=== PATIENT | female | born 1970 | race Caucasian/White ===

== ENCOUNTER → 2017-10-02 07:33 | Outpatient (CLI) | payer BC, SELFPAY ==
--- NOTE | 2017-10-02 07:35 | HPBI_ITS ---
MAMMOGRAPHY - BILATERAL SCREENING REASON FOR EXAM: Female, 47 years old. Routine annual screening examination. PERTINENT HISTORY: Non-contributory. TECHNIQUE: Digital bilateral breast christie (3D mammographic acquisition) in the CC and MLO projections. 2-D mediolateral oblique (MLO) and craniocaudad (CC) views of both breasts were obtained. CAD: Full Field Digital Mammography with Computer Added Detection was performed. COMPARISON: Comparison is made with prior study dated August 27, 2011. FINDINGS: Breast Composition: There are scattered areas of fibroglandular density. There now is evidence of a 1.7 cm area of spiculation in the deep slightly lateral aspect of the left breast. I suspect this to be in the superior segment on the MLO view. Correlation with ultrasound is recommended for further evaluation. No other significant abnormalities are identified. HPBI/SCREENING MAMM (CAD), BILAT IMPRESSION: New spiculated density seen in the upper lateral portion of the left breast as described. Correlation with ultrasound is recommended for further evaluation. ASSESSMENT CATEGORY: BIRADS Category 0: Incomplete. Need additional imaging evaluation. A letter regarding these results will be sent to the patient by the facility within 30 days. Approximately 10% of breast cancers are not detected by mammography. A normal mammogram should not delay biopsy of a clinically suspicious abnormality. [id number] Electronically Signed: Jj Ferrari MD at 10:56 EST Tel [phone], Service support ,
== END ==
PROVIDERS: Family Provider Family Medicine; PCP Family Medicine; Visit Provider Family Medicine
DX: Z12.31 Encounter for screening mammogram for malignant neoplasm of breast (principal)
CPT/HCPCS: 77063; 77067

== ENCOUNTER → 2017-10-06 13:47 | Outpatient (CLI) | payer BC, SELFPAY ==
--- NOTE | 2017-10-06 13:48 | US_ITS ---
STUDY: ULTRASOUND BREAST - LEFT REASON FOR EXAM: Female, 47 years old. Abnormal screening mammogram. TECHNIQUE: Axial and longitudinal images of the LEFT breast were performed with a high resolution ultrasound transducer. COMPARISON: Comparison is made with prior mammogram dated September 2017. FINDINGS: LEFT Breast: At the 4:00 position of the breast, there is a mild degree of dilatation of the ducts. Additional mammographic images will be obtained. US/Breast Limited Unilateral IMPRESSION: Focally dilated ducts. Additional mammographic views will be obtained. ASSESSMENT CATEGORY: BIRADS Category 0: Incomplete. Need additional imaging evaluation. A letter regarding these results will be sent to the patient by the facility within 30 days. Electronically Signed: Jj Ferrari MD at 15:27 EST Tel [phone], Service support ,
--- NOTE | 2017-10-06 14:13 | HPBI_ITS ---
MAMMOGRAPHY - UNILATERAL DIAGNOSTIC: LEFT BREAST REASON FOR EXAM: Female, 47 years old. The patient was recalled for additional views of the left breast. PERTINENT HISTORY: TECHNIQUE: A 90 degree lateral and compression spot views of the left breast were obtained. CAD: Full Field Digital Mammography with Computer Added Detection was performed. COMPARISON: Comparison is made with prior study dated September 2017. FINDINGS: Breast Composition: There are scattered areas of fibroglandular density. There are no dominant masses or suspicious calcifications. There is no evidence of architectural distortion on the repeat examination. No other significant abnormalities are identified. HPBI/DIAG MAMM W/CAD, UNILAT IMPRESSION: Stable unilateral diagnostic mammogram. One year follow-up mammogram recommended. (A) ASSESSMENT CATEGORY: BIRADS Category 2: Benign. A letter regarding these results will be sent to the patient by the facility within 30 days. Approximately 10% of breast cancers are not detected by mammography. A normal mammogram should not delay biopsy of a clinically suspicious abnormality. Electronically Signed: Jj Ferrari MD at 8:11 EST Tel [phone], Service support ,
== END ==
PROVIDERS: Family Provider Family Medicine; PCP Family Medicine; Visit Provider Family Medicine
DX: R92.8 Other abnormal and inconclusive findings on diagnostic imaging of breast (principal)
CPT/HCPCS: 76642; 77065

== ENCOUNTER → 2018-10-08 08:17 | Outpatient (CLI) | payer OTHER, SELFPAY ==
[2018-10-08 12:23] LABS: Hematocrit 44.5 % (37-47); Hemoglobin 14.2 g/dl (12.0-15.0); Mean Corp Hgb Conc 31.9 g/gl (32-36); Mean Corpuscular Hgb 30.9 pg (27.0-32.0); Mean Corpuscular Volume 96.9 fL (81-99); Mean Platelet Vol. 11.3 fl (6.2-12.0); Platelet Count 256 K/mm3 (150-450); RBC Distribution Width CV 12.5 % (11.6-14.6); RBC Distribution Width SD 44.2 fl (35.1-43.9); Red Blood Count 4.59 M/mm3 (4.2-5.4); White Blood Count 4.6 K/mm3 (4.4-11.0)
[2018-10-08 12:24] LABS: Absolute Lymphocyte Count 1.83 X10^3/ul (0.83-4.51); Basophil# 0.08 X10^3/uL; Basophil% 1.7 % (0-1); Eosinophil# 0.08 X10^3/uL; Eosinophils% 1.7 % (0-5); Lymphocyte # 1.83 X10^3/ul (4.0); Lymphocyte % 39.4 % (19-41); Monocyte# 0.65 X10^3/uL; POSITIVE COUNT NO; POSITIVE DIFFERENTIAL NO; POSITIVE MORPHOLOGY NO
[2018-10-08 12:54] LABS: ALB/GLOB Ratio 1.1 RATIO (0.9-2.4); AST(SGOT) 27 U/L (15-37); Alanine Aminotransfer ALT/SGPT 31 U/L (13-56); Alkaline Phosphatase 138 U/L (45-117); Anion Gap 10 (5-15); BUN 14 mg/dL (7-18); BUN/Creat Ratio 18.7 RATIO (10-20); Calcium,Total 9.2 mg/dL (8.5-10.1); Chloride 107 mmol/L (98-107); Cholesterol 194 mg/dL (200); Creatinine, Serum 0.75 mg/dL (0.55-1.02); EST Glomerular Filtration Rate 87 mL/min (>60); Est Glom Filt Rate - Afr Amer 105 mL/min (>60); Globulin 3.8 g/dL (2.2-4.2); Glucose 70 mg/dL (74-106); High Density Lipoprotein 72 mg/dL; Potassium 4.4 mmol/L (3.5-5.1); Protein, Total 7.8 g/dL (6.4-8.2); Sodium Level 140 mmol/L (136-145); Triglycerides 68 mg/dL; Very Low Density Lipoprotein 14 mg/dL (5-40)
== END ==
PROVIDERS: Family Provider Family Medicine; PCP Family Medicine; Visit Provider Family Medicine
DX: Z00.01 Encounter for general adult medical examination with abnormal findings (principal)
CPT/HCPCS: 36415; 80053; 80061; 85025

== ENCOUNTER → 2019-09-23 08:55 | Outpatient (CLI) | payer OTHER, SELFPAY ==
[2019-09-23 12:23] LABS: Absolute Lymphocyte Count 1.87 X10^3/uL (0.83-4.51); Absolute Neutrophil Count 1.7 X10^3/uL (2.0-7.7); Basophil# 0.05 X10^3/uL; Basophil% 1.2 % (0-1); Eosinophil# 0.06 X10^3/uL; Eosinophils% 1.4 % (0-5); Hematocrit 41.5 % (37-47); Hemoglobin 13.4 g/dL (12.0-15.0); Lymphocyte # 1.87 X10^3/ul (4.0); Lymphocyte % 43.5 % (19-41); Mean Corp Hgb Conc 32.3 g/dL (32-36); Mean Corpuscular Hgb 31.2 pg (27.0-32.0); Mean Corpuscular Volume 96.5 fL (81-99); Mean Platelet Vol. 11.1 fl (6.2-12.0); Monocyte# 0.62 X10^3/uL; Monocyte% 14.4 % (0-10); NRBC Flagged by Analyzer 0 % (0-5); Neutrophil # 1.69 X10^3/uL (2.7-7.7); Neutrophil % 39.3 % (47-70); Platelet Count 272 K/mm3 (150-450); RBC Distribution Width CV 12.1 % (11.6-14.6); RBC Distribution Width SD 42.8 fl (35.1-43.9); White Blood Count 4.3 K/mm3 (4.4-11.0)
[2019-09-23 12:43] LABS: ALB/GLOB Ratio 1.1 RATIO (0.9-2.4); AST(SGOT) 21 U/L (15-37); Alanine Aminotransfer ALT/SGPT 33 U/L (13-56); Albumin, Serum 3.8 g/dL (3.2-5.0); Alkaline Phosphatase 137 U/L (45-117); Anion Gap 4 (5-15); BUN 12 mg/dL (7-18); BUN/Creat Ratio 16.4 RATIO (10-20); Calcium,Total 9.6 mg/dL (8.5-10.1); Chloride 107 mmol/L (98-107); Cholesterol 201 mg/dL (200); Creatinine, Serum 0.73 mg/dL (0.55-1.02); EST Glomerular Filtration Rate 89 mL/min (>60); Est Glom Filt Rate - Afr Amer 107 mL/min (>60); Globulin 3.6 g/dL (2.2-4.2); Glucose 86 mg/dL (74-106); High Density Lipoprotein 76 mg/dL; Protein, Total 7.4 g/dL (6.4-8.2); Sodium Level 139 mmol/L (136-145); Triglycerides 69 mg/dL
[2019-09-23 12:44] LABS: Very Low Density Lipoprotein 14 mg/dL (5-40)
[2019-09-24 19:25] LABS: Lipoprotein A 404.7 nmol/L (<75.0)
== END ==
LOC: BFHLAB 08:56
PROVIDERS: PCP Family Medicine; Visit Provider Family Medicine
DX: Z00.00 Encounter for general adult medical examination without abnormal findings (principal); Z82.49 Family history of ischemic heart disease and other diseases of the circulatory system
CPT/HCPCS: 36415; 80053; 80061; 83695; 85025

== ENCOUNTER → 2019-09-29 07:00 | Outpatient (CLI) | payer OTHER, SELFPAY ==
--- NOTE | 2019-09-29 06:53 | BI_ITS ---
MAMMOGRAPHY - BILATERAL SCREENING REASON FOR EXAM: Female, 49 years old. Routine annual screening examination. PERTINENT HISTORY: Non-contributory. TECHNIQUE: Digital bilateral breast lola (3D mammographic acquisition) in the CC and MLO projections. 2-D mediolateral oblique (MLO) and craniocaudad (CC) views of both breasts were obtained. CAD: Full Field Digital Mammography with Computer Added Detection was performed. COMPARISON: Comparison is made with prior examination dated October 02, 2017 and August 27, 2011. FINDINGS: Breast Composition: There are scattered areas of fibroglandular density. There are no dominant masses or suspicious calcifications. Metastases again, there is a focal area of the architectural distortion in the deep slightly lateral aspect of the left breast as seen on the craniocaudad view. This was worked up on prior examination. Repeat additional views including 90 degree lateral view of the left breast as well as rolled views and possible compression views of the left breast as well. No other significant abnormalities are identified. BI/SCREEN MAMM (CAD) W/LOLA BILAT IMPRESSION: Focal area of architectural distortion in the left breast as described. The patient will be recalled for additional views including compression spot views in the craniocaudad projection as well as rolled views and 90 degree lateral view. Recall Side: Left Breast ASSESSMENT CATEGORY: BIRADS Category 0: Incomplete. Need additional imaging evaluation. A letter regarding these results will be sent to the patient by the facility within 30 days. Approximately 10% of breast cancers are not detected by mammography. A normal mammogram should not delay biopsy of a clinically suspicious abnormality. [id number] Electronically Signed: Jj Ferrari, at 12:59 EST , Service support ,
--- NOTE | 2019-09-29 16:10 | RAD_ITS ---
STUDY: X-RAY CHEST REASON FOR EXAM: Female, 49 years old. left sided chest wall pain TECHNIQUE: PA and lateral COMPARISON: None. FINDINGS: The lungs are clear and expanded. There is no demonstrated pleural abnormality. Normal size heart. Normal mediastinum and mrailyn. Normal visualized pulmonary arteries. Normal visualized aortic arch and descending thoracic aorta. Thoracic spine demonstrates needle scoliosis and degenerative change. Normal visualized ribs, clavicles, and shoulders. There is no demonstrated abnormality of the visualized soft tissue structures of the upper abdomen. RAD/Chest PA and Lateral IMPRESSION: No acute cardiopulmonary pathology. Electronically Signed: Keegan Brice MD at 23:00 EST , Service support ,
== END ==
PROVIDERS: PCP Family Medicine; Referring Provider Family Medicine; Visit Provider Family Medicine
DX: Z12.31 Encounter for screening mammogram for malignant neoplasm of breast (principal); R07.9 Chest pain, unspecified
CPT/HCPCS: 71046; 77063; 77067

== ENCOUNTER → 2019-09-30 08:47 | Outpatient (CLI) | payer OTHER, SELFPAY ==
--- NOTE | 2019-09-30 08:50 | US_ITS ---
STUDY: ULTRASOUND BREAST - LEFT REASON FOR EXAM: Female, 49 years old. Abnormal screening mammogram. TECHNIQUE: Axial and longitudinal images of the LEFT breast were performed with a high resolution ultrasound transducer. # OF IMAGES: 1 COMPARISON: Comparison is made with prior examination dated September 30, 2019 and September 29, 2019. Comparison is also made with the prior sonogram of the left breast dated October 06, 2017. FINDINGS: LEFT Breast: The lateral half of the left breast was examined by ultrasound. Mildly dilated ducts at the 3 to 4:00 position of the breast. US/Breast Limited Unilateral IMPRESSION: Dilated ducts at the 3 to 4:00 position of the breast. This is unchanged. ASSESSMENT CATEGORY: BIRADS Category 2: Benign. A letter regarding these results will be sent to the patient by the facility within 30 days. Electronically Signed: Jj Ferrari, at 12:55 EST , Service support ,
--- NOTE | 2019-09-30 08:50 | BI_ITS ---
MAMMOGRAPHY - UNILATERAL DIAGNOSTIC: LEFT BREAST REASON FOR EXAM: Female, 49 years old. Abnormal screening mammogram. PERTINENT HISTORY: Non-contributory. TECHNIQUE: Compression spot views of the left breast in the mediolateral oblique and craniocaudad views were obtained. CAD: Full Field Digital Mammography with Computer Added Detection was performed. COMPARISON: Comparison is made with prior mammogram dated September 29, 2019. FINDINGS: Breast Composition: There are scattered areas of fibroglandular density. Persistent focal area of architectural distortion is seen on the craniocaudad view. Correlation with ultrasound is recommended. No other significant abnormalities are identified. BI/DIAG MAMM W/CAD, UNILAT IMPRESSION: Stable unilateral diagnostic mammogram. Correlation with ultrasound of the left breast is recommended. ASSESSMENT CATEGORY: BIRADS Category 0: Incomplete. Need additional imaging evaluation. A letter regarding these results will be sent to the patient by the facility within 30 days. Approximately 10% of breast cancers are not detected by mammography. A normal mammogram should not delay biopsy of a clinically suspicious abnormality. Electronically Signed: Jj Ferrari, at 10:18 EST , Service support ,
== END ==
PROVIDERS: PCP Family Medicine; Referring Provider Family Medicine; Visit Provider Family Medicine
DX: R92.8 Other abnormal and inconclusive findings on diagnostic imaging of breast (principal)
CPT/HCPCS: 76642; 77065

== ENCOUNTER → 2019-10-21 06:55 | Outpatient (CLI) | payer OTHER, SELFPAY ==
[2019-10-06 10:14] VITALS: BMI 27.9
--- NOTE | 2019-10-21 06:55 | ECHOD_ITS ---
Reason For Study: CHEST PAIN Procedure This was a 2D Doppler, Color Flow transthoracic echocardiogram. Exam performed in department. Left Ventricle Normal LV size. The estimated ejection fraction is 55 %. No evidence for diastolic dysfunction. No regional wall motion abnormalities noted. Right Ventricle Normal RV size. Normal systolic function. Atria Normal left atrium. Normal right atrium. No doppler evidence for ASD. Mitral Valve There is no mitral valve stenosis. No mitral valve insufficiency. Tricuspid Valve There is no tricuspid stenosis. Trivial tricuspid valve insufficiency. Pulmonary artery systolic pressure is 30 mmHg. Aortic Valve Trisinus/trileaflet aortic valve. There is no aortic stenosis. No aortic valve insufficiency. Pulmonic Valve There is no pulmonic valvular stenosis. Trivial pulmonic valve insufficiency identified. Great Vessels Normal aortic root. Pericardium/Pleural No pericardial effusion. MMode/2D Measurements & Calculations LVIDd: 4.4 cm IVSd: 0.64 cm Ao root diam: 3.1 cm LVIDs: 3.1 cm LVPWd: 0.80 cm RVDd: 3.5 cm FS: 29.8 % LAV(MOD-bp): 37.7 ml LVAd ap4: 28.2 cm2 SV(MOD-sp4): 51.5 ml LAV(MOD-bp) Indexed: 19.1 ml/m2 EDV(MOD-sp4): 82.5 ml LAV(MOD-sp2): 40.1 ml EDV(sp4-el): 85.9 ml LAV(MOD-sp4): 32.1 ml LVAs ap4: 15.2 cm2 ESV(MOD-sp4): 31.0 ml ESV(sp4-el): 31.2 ml EF(MOD-sp4): 62.5 % EF(sp4-el): 63.7 % SV(sp4-el): 54.7 ml LA A4 area: 13.8 cm2 LA dimension(2D): 3.1 cm RA A4 area: 14.2 cm2 Time Measurements MV dec time: 0.19 sec Doppler Measurements & Calculations MV E max devon: 91.8 cm/sec Lat Peak E' Devon: 11.6 cm/sec Med Peak E' Devon: 9.2 cm/sec MV A max devon: 74.0 cm/sec E/E' lat: 7.9 E/E' med: 10.0 MV E/A: 1.2 Ao V2 max: 139.8 cm/sec LV V1 max: 102.6 cm/sec PA V2 max: 102.8 cm/sec Ao max P.8 mmHg LV V1 max P.2 mmHg TR max devon: 246.3 cm/sec TR max P.3 mmHg Interpretation Summary The estimated ejection fraction is 55 %. No evidence for diastolic dysfunction. Trivial tricuspid valve insufficiency. Pulmonary artery systolic pressure is 30 mmHg. Ordering Physician: Tracie Calderon Referring Physician: MAURICE SANTOS Performed By: Zara Moffett RDCS
--- NOTE | 2019-10-22 16:11 | STRESSREP_ITS ---
Stress Test Report Date: 10/21/2019 Procedure: Exercise tolerance test/imaging study Indications: Chest pain Consent: Per the patient Procedure: The patient exercised on a Da protocol for 9 minutes achieving a peak heart rate of 171 bpm (101 % predicted maximal heart rate) with a peak blood pressure 140/76 mmHg and a peak MET capacity of 10.1 METs. The baseline ECG demonstrated normal sinus rhythm. The peak exercise ECG demonstrated sinus tachycardia with no significant ischemic changes. EKG during recovery revealed no significant ischemic changes [There were no cardiac dysrhythmias pretest, during exercise, or recovery]. The functional capacity was considered normal for age. There was [no complaint of chest discomfort during exercise or recovery]. The examination was discontinued secondary to achieving target heart rate. Impression: 1. Technically adequate (percent predicted maximal heart rate greater than 85%) exercise tolerance test 2. Stress test is negative for exercise-induced EKG changes of ischemia 3. The test test is negative for exercise-induced chest pain 4. Functional capacity is normal for age 5. Nuclear images pending Myocardial perfusion imaging study: Technique: The patient was injected with 14.1 mCi of technetium 99m Cardiolite and subsequently rest SPECT Cardiolite nuclear imaging was obtained in the horizontal long, vertical long, and short axis views. The patient exercised on a Da protocol. Please see above for details. The patient was injected with 44.3 mCi of technetium 99m Cardiolite and subsequently stress SPECT Cardiolite nuclear imaging was obtained in the horizontal long, vertical long, and short axis views. A gated Cardiolite study at peak stress was obtained. Interpretation: Rest and stress SPECT Cardiolite nuclear imaging status post realignment, normalization, and attenuation correction, demonstrates normal myocardial radioisotope uptake after attenuation correction. The gated Cardiolite study demonstrates no significant regional wall motion abnormalities. The reported LVEF is 68 %. Impression: 1. There is no evidence of significant ischemia or infarction. 2. The gated Cardiolite study reports an LVEF of 68 %. This note was generated with [employer] software. It may contain incorrect words, spelling, and punctuation that were not noted in checking the note before signing.
== END ==
PROVIDERS: PCP Family Medicine; Referring Provider Specialist; Visit Provider Specialist
DX: R07.9 Chest pain, unspecified (principal); E78.5 Hyperlipidemia, unspecified
CPT/HCPCS: 78452; 93017; 93306; A9500; A4216

== ENCOUNTER 2020-11-07 17:37 | Outpatient (RCR) | payer OTHER, SELFPAY ==
[2019-11-09 14:57] VITALS: BMI 27.9
[2020-11-07] MEDS: COVID-19 VACC, MRNA(PFIZER)/PF 30 MCG/0.3 ML SYRINGE IM (15:20)
[2020-11-28] MEDS: COVID-19 VACC, MRNA(PFIZER)/PF 30 MCG/0.3 ML SYRINGE IM (15:05)
== END 2021-01-30 23:59 ==
LOC: IMMUN 17:37
PROVIDERS: PCP Family Medicine; Referring Provider Family Medicine; Visit Provider Family Medicine
DX: Z23 Encounter for immunization (principal)
CPT/HCPCS: 0001A; 0002A; 91300

== ENCOUNTER → 2021-06-21 16:35 | Outpatient (CLI) | payer OTHER, SELFPAY ==
--- NOTE | 2021-06-21 16:37 | RAD_ITS ---
STUDY: X-RAY - LEFT ELBOW REASON FOR EXAM: Female, 51 years old. Elbow pain. TECHNIQUE: 3 view(s) of the elbow. COMPARISON: None. FINDINGS: Normal visualized humerus, radius and ulna. Normal radiocapitellar and ulnotrochlear articulations. The soft tissue structures are unremarkable. RAD/Elbow min 3 Views IMPRESSION: Normal x-ray examination of the elbow. Electronically Signed: Dex Watson MD at 10:26 EDT , Service support ,
== END ==
PROVIDERS: PCP Family Medicine; Referring Provider Family Medicine; Visit Provider Family Medicine
DX: M25.522 Pain in left elbow (principal)
CPT/HCPCS: 73080

== ENCOUNTER → 2022-06-21 | Outpatient (CLI) | payer OTHER, SELFPAY ==
[2022-06-21 06:58] LABS: Absolute Lymphocyte Count 2.65 X10^3/uL (0.83-4.51); Absolute Neutrophil Count 1.5 X10^3/uL (2.0-7.7); Basophil# 0.08 X10^3/uL; Basophil% 1.5 % (0-1); Eosinophil# 0.09 X10^3/uL; Eosinophils% 1.7 % (0-5); Hemoglobin 15.1 g/dL (12.0-15.0); Lymphocyte # 2.65 X10^3/ul (0.83-4.51); Lymphocyte % 50.3 % (19-41); Mean Corp Hgb Conc 34.3 g/dL (32-36); Mean Corpuscular Volume 96.1 fL (81-99); Mean Platelet Vol. 9.9 fl (6.2-12.0); Monocyte% 17.1 % (0-10); NRBC Flagged by Analyzer 0 % (0-5); Neutrophil # 1.54 X10^3/uL (2.7-7.7); Neutrophil % 29.2 % (47-70); Platelet Count 257 K/mm3 (150-450); RBC Distribution Width SD 41.7 fl (35.1-43.9); Red Blood Count 4.58 M/mm3 (4.2-5.4); White Blood Count 5.3 K/mm3 (4.4-11.0)
[2022-06-21 07:06] LABS: ALB/GLOB Ratio 0.9 RATIO (0.9-2.4); AST(SGOT) 15 U/L (15-37); Alanine Aminotransfer ALT/SGPT 28 U/L (13-56); Albumin, Serum 3.7 g/dL (3.2-5.0); Alkaline Phosphatase 125 U/L (45-117); Anion Gap 5 (5-15); BUN 12 mg/dL (7-18); BUN/Creat Ratio 17.3 RATIO (10-20); Calcium,Total 9.1 mg/dL (8.5-10.1); Chloride 108 mmol/L (98-107); Cholesterol 196 mg/dL (200); EST Glomerular Filtration Rate 93 mL/min (>60); Est Glom Filt Rate - Afr Amer 113 mL/min (>60); Globulin 3.9 g/dL (2.2-4.2); Glucose 85 mg/dL (74-106); High Density Lipoprotein 75 mg/dL; Protein, Total 7.6 g/dL (6.4-8.2); Sodium Level 140 mmol/L (136-145); Triglycerides 80 mg/dL; Very Low Density Lipoprotein 16 mg/dL (5-40)
== END | disposition home or self-care (01) ==
LOC: LAB 06:37
PROVIDERS: PCP Family Medicine; Referring Provider Family Medicine; Visit Provider Family Medicine
DX: Z00.00 Encounter for general adult medical examination without abnormal findings (principal)
CPT/HCPCS: 36415; 80053; 80061; 85025

== ENCOUNTER → 2022-07-03 | Outpatient (CLI) | payer OTHER, SELFPAY ==
--- NOTE | 2022-07-03 06:44 | CT_ITS ---
STUDY: CT ABDOMEN AND PELVIS WITH CONTRAST REASON FOR EXAM: Female, 52 years old. BILATERAL UPPER ABD PAIN X 2 MONTHS. PRIOR CHOLECYSTECTOMY RADIATION DOSAGE (If Supplied By Facility): CTDIvol = ( 13.89 ) mGy, DLP = ( 1125.65 ) mGycm TECHNIQUE: Transaxial images were obtained from the dome of the diaphragm to the symphysis pubis with oral contrast. Oral and amp; IV Readi-CAT and amp; 100mL Isovue-300 was administered. Sagittal and coronal images were reconstructed. Individualized dose optimization techniques were used for this CT. COMPARISON: None. FINDINGS: The visualized lung bases are unremarkable. The visualized portions of the heart are within normal limits. There is decreased attenuation of the liver consistent with steatosis. There are surgical clips in the gallbladder fossa consistent with a prior cholecystectomy. There is a 2.8 cm x 2.7 cm cyst in the superior medial aspect of the spleen. Focal calcification is seen along its posterior margin. Normal pancreas. Normal bilateral adrenal glands. Normal right kidney. Normal left kidney. There is a small hiatal hernia. Normal small intestine. Moderate amount of fecal material is seen in the colon. The appendix is visualized and appears normal. There is scattered atherosclerotic calcification of the abdominal aorta, without a demonstrated aneurysm. Normal inferior vena cava. Normal retroperitoneum. Normal urinary bladder. Normal abdominal wall. There are degenerative changes of the visualized lumbar spine. Dextroscoliosis. CT/Abdomen/Pelvis WITH Contrast IMPRESSION: Fatty infiltration of the liver. Status post cholecystectomy. 2.8 cm x 2.7 cm cyst in the superior medial aspect of the spleen with the focal calcification along its posterior margin. Electronically Signed: Jj Ferrari MD at 9:25 EST ,
== END | disposition home or self-care (01) ==
LOC: CT 06:42
PROVIDERS: PCP Family Medicine; Referring Provider Family Medicine; Visit Provider Family Medicine
DX: R10.9 Unspecified abdominal pain (principal); R11.2 Nausea with vomiting, unspecified
CPT/HCPCS: 74177; Q9967

== ENCOUNTER → 2022-07-23 | Outpatient (CLI) | payer OTHER, SELFPAY ==
--- NOTE | 2022-07-23 07:23 | BI_ITS ---
MAMMOGRAPHY - BILATERAL SCREENING REASON FOR EXAM: Female, 52 years old. Routine annual screening examination. PERTINENT HISTORY: Non-contributory. TECHNIQUE: Digital bilateral breast lola (3D mammographic acquisition) in the CC and MLO projections. 2-D mediolateral oblique (MLO) and craniocaudad (CC) views of both breasts were obtained. CAD: Full Field Digital Mammography with Computer Added Detection was performed. COMPARISON: Comparison is made with prior study dated 09/29/2019 and 10/02/2007. FINDINGS: Breast Composition: There are scattered areas of fibroglandular density. There are no dominant masses or suspicious calcifications. Once again, there is a focal area of architectural distortion in the deep slightly lateral aspect of the left breast as seen on the craniocaudad views. This was seen on multiple prior examinations. No other significant abnormalities are identified. There has been no significant change since the prior study. BI/SCRN MAMM (CAD)W/LOAL BILAT IMPRESSION: Stable bilateral screening mammogram. Yearly follow-up mammogram recommended. (A) ASSESSMENT CATEGORY: BIRADS Category 2: Benign. A letter regarding these results will be sent to the patient by the facility within 30 days. Approximately 10% of breast cancers are not detected by mammography. A normal mammogram should not delay biopsy of a clinically suspicious abnormality. [id number] Electronically Signed: Jj Ferrari MD at 8:37 EST ,
== END | disposition home or self-care (01) ==
LOC: OPBI 07:20
PROVIDERS: PCP Family Medicine; Referring Provider Family Medicine; Visit Provider Family Medicine
DX: Z12.31 Encounter for screening mammogram for malignant neoplasm of breast (principal)
CPT/HCPCS: 77063; 77067

== ENCOUNTER → 2023-02-19 | Outpatient (CLI) | payer OTHER, SELFPAY ==
--- NOTE | 2023-02-19 09:55 | RAD_ITS ---
INDICATION: LEFT MEDIAL POSTERIOR PAIN EXAMINATION/TECHNIQUE: X-RAY - LEFT XR Knee Complete 4 Views or More COMPARISON: None. FINDINGS: No acute fracture or malalignment. Mild tricompartmental joint space narrowing and osteophytosis. No joint effusion. The soft tissues are unremarkable. RAD/Knee 4 or More Views IMPRESSION: No acute abnormalities. Mild tricompartmental degenerative arthrosis of the knee. Electronically Signed: Mika Bullock MD at 16:50 EDT ,
== END | disposition home or self-care (01) ==
LOC: MTRAD 09:53
PROVIDERS: PCP Family Medicine; Referring Provider Family Medicine; Visit Provider Family Medicine
DX: M25.562 Pain in left knee (principal)
CPT/HCPCS: 73564

== ENCOUNTER → 2023-07-24 | Outpatient (CLI) | payer OTHER, SELFPAY ==
[2023-07-24 06:37] LABS: Absolute Lymphocyte Count 2.61 X10^3/uL (0.83-4.51); Absolute Neutrophil Count 2.3 X10^3/uL (2.0-7.7); Basophil# 0.05 X10^3/uL; Basophil% 0.9 % (0-1); Eosinophil# 0.07 X10^3/uL; Eosinophils% 1.2 % (0-5); Hemoglobin 14.4 g/dL (12.0-15.0); Lymphocyte # 2.61 X10^3/ul (0.83-4.51); Lymphocyte % 45.2 % (19-41); Mean Corp Hgb Conc 32.7 g/dL (32-36); Mean Corpuscular Hgb 31.8 pg (27.0-32.0); Mean Corpuscular Volume 97.1 fL (81-99); Mean Platelet Vol. 9.9 fl (6.2-12.0); Monocyte# 0.76 X10^3/uL; Monocyte% 13.2 % (0-10); NRBC Flagged by Analyzer 0 % (0-5); Neutrophil # 2.26 X10^3/uL (2.7-7.7); Neutrophil % 39.2 % (47-70); Platelet Count 293 K/mm3 (150-450); RBC Distribution Width CV 12.3 % (11.6-14.6); RBC Distribution Width SD 44.2 fl (35.1-43.9); Red Blood Count 4.53 M/mm3 (4.2-5.4); White Blood Count 5.8 K/mm3 (4.4-11.0)
[2023-07-24 07:11] LABS: ALB/GLOB Ratio 0.9 RATIO (0.9-2.4); AST(SGOT) 21 U/L (15-37); Alanine Aminotransfer ALT/SGPT 25 U/L (13-56); Albumin, Serum 3.6 g/dL (3.2-5.0); Alkaline Phosphatase 124 U/L (45-117); Anion Gap 2 (5-15); BUN 13 mg/dL (7-18); BUN/Creat Ratio 16.8 RATIO (10-20); Calcium,Total 9.1 mg/dL (8.5-10.1); Chloride 107 mmol/L (98-107); Cholesterol 216 mg/dL (200); Creatinine, Serum 0.78 mg/dL (0.55-1.02); EST Glomerular Filtration Rate 82 mL/min (>60); Est Glom Filt Rate - Afr Amer 99 mL/min (>60); Globulin 3.8 g/dL (2.2-4.2); Glucose 85 mg/dL (74-106); High Density Lipoprotein 78 mg/dL; Potassium 3.9 mmol/L (3.5-5.1); Protein, Total 7.4 g/dL (6.4-8.2); Sodium Level 138 mmol/L (136-145); Thyroid Stim Hormone (TSH) 6.23 uIU/mL (0.358-3.74); Triglycerides 107 mg/dL; Very Low Density Lipoprotein 21 mg/dL (5-40)
== END | disposition home or self-care (01) ==
LOC: LAB 06:14
PROVIDERS: PCP Family Medicine; Referring Provider Family Medicine; Visit Provider Family Medicine
DX: Z00.00 Encounter for general adult medical examination without abnormal findings (principal)
CPT/HCPCS: 36415; 80053; 80061; 84443; 85025

== ENCOUNTER → 2023-07-29 | Outpatient (CLI) | payer OTHER, SELFPAY ==
--- NOTE | 2023-07-29 14:12 | BI_ITS ---
MAMMOGRAPHY - BILATERAL SCREENING REASON FOR EXAM: Female, 53 years old. Routine annual screening examination. PERTINENT HISTORY: Non-contributory. TECHNIQUE: Digital bilateral breast lola (3D mammographic acquisition) in the CC and MLO projections. 2-D mediolateral oblique (MLO) and craniocaudad (CC) views of both breasts were obtained. CAD: Full Field Digital Mammography with Computer Added Detection was performed. COMPARISON: Comparison is made with prior study July 23, 2022 and September 29, 2019. FINDINGS: Breast Composition: There are scattered areas of fibroglandular density. There are no dominant masses or suspicious calcifications. No other significant abnormalities are identified. There has been no significant change since the prior study. BI/SCRN MAMM (CAD)W/LOLA BILAT IMPRESSION: Stable bilateral screening mammogram. Yearly follow-up mammogram recommended. (A) ASSESSMENT CATEGORY: BIRADS Category 1: Negative. A letter regarding these results will be sent to the patient by the facility within 30 days. Approximately 10% of breast cancers are not detected by mammography. A normal mammogram should not delay biopsy of a clinically suspicious abnormality. [id number] Electronically Signed: Jj Ferrari MD at 15:23 EST ,
== END | disposition home or self-care (01) ==
LOC: OPBI 14:11
PROVIDERS: PCP Family Medicine; Referring Provider Family Medicine; Visit Provider Family Medicine
DX: Z12.31 Encounter for screening mammogram for malignant neoplasm of breast (principal)
CPT/HCPCS: 77063; 77067

== ENCOUNTER → 2023-09-05 | Outpatient (CLI) | payer OTHER, SELFPAY ==
--- OUTSIDE RECORDS SUMMARY | 2023-09-05 10:49 | XMS RPT_ITS | CCD ---
Author Name Unknown Address [address] [place] [address] Organization [facility] Care Team Providers Care Credentialer Name Role Phone KANA GABRIEL Admitting Unavailable KANA GABRIEL Attending Unavailable KANA GABREIL Primary Care Unavailable Anshu Jorgensen Primary Care Provider Medications Current Medications Medication Drug Class(es) Dates Sig (Normalized) Sig (Original) ciprofloxacin 500 mg oral tablet (1 source) Quinolone Antimicrobial Start: 03-04-2016 End: 11-18-2021 take 1 tablet by mouth twice daily ciprofloxacin HCl (CIPRO) 500 mg tablet Take 1 tablet by mouth twice daily. 10 tablet 0 03/04/2016 11/18/2021 Discontinued Completed/Discontinued Medications Medication Drug Class(es) Dates Sig (Normalized) Sig (Original) acetaminophen 325 mg oral capsule (1 source) acetaminophen (T YLENOL) 325 mg cap Take by mouth. 0 Active Problems Problem Classification Problem Date Documented Da te Episodic/Chronic Immunizations and screening for infectious disease (3 sources) Encounter for screening for other viral diseases; Translations: [Encounter for screening for other viral diseases] Onset: 02-17-2020 Episodic Nutritional deficiencies (1 source) Vitamin D deficiency; Translations: [Vitamin D deficiency, unspecified] 08-15-2015 Chronic Other hereditary and degenerative nervous system conditions (1 source) Restless legs; Translations: [Restless legs syndrome] 08-15-2015 Chronic Other non-traumatic joint disorders (1 source) Hip pain; Translations: [Pain in unspecified hip] 08-15-2015 Episodic Other non-traumatic joint disorders (1 source) Pain in unspecified knee; Translations: [Pain in joint, lower leg] 08-15-2015 Episodic Spondylosis; intervertebral disc disorders; other back problems (1 source) Acute low back pain; Translations: [Acute left-sided low back pain without sciatica] Episodic Results Test Name Value Interpretation Reference Range Facil ity Vital Signs Date Time Vital Sign Value Performing Clinician Alaina wise 11-18-2021 08:35-0400 Body temperature 97.59 [degF] John Page APRN.COMPRESSOR REPAIRER Work Phone: [facility] 11-18-2021 08:35-0400 Body weight 87 kg John Page APRN.COMPRESSOR REPAIRER Work Phone: [facility] 11-18-2021 08:35-0400 Diastolic blood pressure 78 mm[Hg] John Page APRN.COMPRESSOR REPAIRER Work Phone: [facility] 11-18-2021 08:35-0400 Heart rate 107 /min John Page APRN.COMPRESSOR REPAIRER Work Phone: [facility] 11-18-2021 08:35-0400 Respiratory rate 16 /min John Page APRN.COMPRESSOR REPAIRER Work Phone: [facility] 11-18-2021 08:35-0400 SaO2% (BldA) [Mass fraction] 99 % John Page APRN.COMPRESSOR REPAIRER Work Phone: [facility] 11-18-2021 08:35-0400 Systolic blood pressure 126 mm[Hg] John Page APRN.COMPRESSOR REPAIRER Work Phone: [facility] Encounters Encounter Date Encounter Type Care Provider Facility Start: 11-18-2021 End: 11-18-2021 Patient encounter procedure John Page APRN.COMPRESSOR REPAIRER Work Phone: [facility] Plan of Treatment Date Care Activity Detail Author Start: 01-26-2020 LIPID SCREEN LIPID SCREEN [facility] Start: 2018 SHINGRIX VACCINE (1 of 2) SHINGRIX V ACCINE (1 of 2) [facility] Start: 01-25-2018 DIABETES SCREEN DIABETES SCREEN [facility] Start: 10-12-2017 PAP TESTING PAP TESTING [facility] Start: 2013 COLOGUARD (FIT-DNA) COLOGUARD (FIT-D NA) [facility] Start: 2013 Colonoscopy COLONOSCOPY [facility] Start: 2013 COLORECTAL CANCER SCREENING COLORECTAL CANCER SCREENING [facility] Start: [address] COLONOGRAPHY [facility] Start: 2013 FECAL OCCULT BLOOD FECAL OCCULT BLOO D [facility] Start: 2013 [facility] Start: 2008 Mammography MAMMOGRAM [facility] Start: 1998 HPV TESTING HPV TESTING [facility] Start: 1987 Urine microalbumin profile DTAP,TDAP ,TD (1 - Tdap) [facility] Start: 1986 HEPATITIS C SCREENING HEPATITIS C SC REENING [facility] Start: 1986 HIV SCREENING HIV SCREENING [facility] Start: 1980 Adult depression scr eening assessment DEPRESSION SCREENING [facility] Payers Date Payer Category Payer Private Health Insurance [facility] [employer] [id number] 2019-Present [phone] [address] [address] [place] [address] O [id number] 1970 Unknown [id number] Private Health Insurance [id number] Social History Date Type Detail Facility Tobacco smoking stat [facility] Never smoked tobacco [facility] Start: 11-18-2021 Alcohol intake Current drinke r of alcohol (finding) [facility] Start: 1970 Sex Assigned At Not on file [facility] Start: 11-08-2021 End: 11-18-2021 Exposure to SARS-CoV-2 (event) Not sure [facility] Progress note 11-18-2021 Note Date & Type Note Facility 11-18-2021 Note HNO ID: [id number] Author: John Page APRN.COMPRESSOR REPAIRER Service: ? Author Type: Nurse Practitioner Type: Progress Notes Filed: 11/18/2021 9:37 AM Note Text: Subjective HPI HPI Denise Dorado is a 51 year old female who presents today for CC of low back pain. This started 1 week ago. Has tried otc medication for relief. Symptoms are worsened by rom of back. Risk factors hx of back pain/scoliosis. Noticed some bloating of abdomen/reports not abnormal to occur. .Patient presents with: Pain: lower back pain rated 10, denied injury x1 wk PAST MEDICAL HISTORY Diagnosis Date - Constipation - Hip pain - Knee pain - Lightheadedness - Neck pain - Restless legs - Uses oral contraception - Vitamin D deficiency PAST SURGICAL HISTORY Procedure Laterality Date - CHOLECYSTECTOMY ALLERGIES Patient has no known allergies. MEDICATIONS acetaminophen (TYLENOL) 325 mg cap Take by mouth. sulfamethoxazole-trimethoprim (BACTRIM DS) 800-160 mg per tablet Take 1 tablet by mouth twice daily. ciprofloxacin HCl (CIPRO) 500 mg tablet Take 1 tablet by mouth twice daily. FAMILY HISTORY Problem Relation Age of Onset - None Mother - None Father unknown - None Sister - None Brother - None Daughter - None Son Social History Tobacco Use - Smoking status: Never Smoker - Smokeless tobacco: Never Used Substance Use Topics - Alcohol use: Yes Comment: a couple weekly - Drug use: No Review of Systems Constitutional: Negative for chills, fever and weight loss. Cardiovascular: Negative for leg swelling. Gastrointestinal: Negative for abdominal pain, constipation, diarrhea, nausea and vomiting. Genitourinary: Negative for dysuria, flank pain, frequency, hematuria and urgency. Musculoskeletal: Positive for back pain. Skin: Negative for rash. Neurological: Negative for sensory change and focal weakness. Objective Blood pressure 126/78, pulse 107, temperature 36.4 ?C (97.6 ?F), resp. rate 16, weight 87 kg (191 lb 12.8 oz), SpO2 99 %. Physical Exam Constitutional: General: She is not in acute distress. Appearance: Normal appearance. She is not diaphoretic. Cardiovascular: Pulses: Dorsalis pedis pulses are 2+ on the right side and 2+ on the left side. Posterior tibial pulses are 2+ on the right side and 2+ on the left side. Abdominal: General: Bowel sounds are normal. Palpations: Abdomen is soft. Tenderness: There is no abdominal tenderness. Musculoskeletal: Lumbar back: Spasms present. Decreased range of motion. Back: Comments: Lumbar paraspinal muscles tender with palpation Neurological: Mental Status: She is alert and oriented to person, place, and time. Gait: Gait is intact. Gait normal. Deep Tendon Reflexes: Reflex Scores: Patellar reflexes are 2+ on the right side and 2+ on the left side. ASSESSMENT/PLAN: 1. Acute left-sided low back pain without sciatica - ICD9: 724.2, ICD10: M54.50 Steroids, flexeril, stretches provided Ice/rest Has f/u with pcp in 7 days, keep appointment. - PREDNISONE 10 MG TABLET - CYCLOBENZAPRINE 10 MG TABLET Agrees to plan John Page APRN.[facility] History of Present illness Narrative 11-18-2021 John Page APRN.BROOK - 11/18/2021 8:38 AM EDT Note Date & Type Note Facility 11-18-2021 History of Presen t illness Narrative Images from the original note were not included. Subjective HPI HPI Denise Dorado is a 51 year old female who presents today for CC of low back pain. This started 1 week ago. Has tried otc medication for relief. Symptoms are worsened by rom of back. Risk factors hx of back pain/scoliosis. Noticed some bloating of abdomen/reports not abnormal to occur. .Patient presents with: Pain: lower back pain rated 10, denied injury x1 wk PAST MEDICAL HISTORY Diagnosis Date Constipation Hip pain Knee pain Lightheadedness Neck pain Restless legs Uses oral contraception Vitamin D deficiency PAST SURGICAL HISTORY Procedure Laterality Date CHOLECYSTECTOMY ALLERGIES Patient has no known allergies. MEDICATIONS acetaminophen (TYLENOL) 325 mg cap Take by mouth. sulfamethoxazole-trimethoprim (BACTRIM DS) 800-160 mg per tablet Take 1 tablet by mouth twice daily. ciprofloxacin HCl (CIPRO) 500 mg tablet Take 1 tablet by mouth twice daily. FAMILY HISTORY Problem Relation Age of Onset None Mother None Father unknown None Sister None Brother None Daughter None Son Social History Tobacco Use Smoking status: Never Smoker Smokeless tobacco: Never Used Substance Use Topics Alcohol use: Yes Comment: a couple weekly Drug use: No Review of Systems Constitutional: Negative for chills, fever and weight loss. Cardiovascular: Negative for leg swelling. Gastrointestinal: Negative for abdominal pain, constipation, diarrhea, nausea and vomiting. Genitourinary: Negative for dysuria, flank pain, frequency, hematuria and urgency. Musculoskeletal: Positive for back pain. Skin: Negative for rash. Neurological: Negative for sensory change and focal weakness. Objective Blood pressure 126/78, pulse 107, temperature 36.4 C (97.6 F), resp. rate 16, weight 87 kg (191 lb 12.8 oz), SpO2 99 %. Physical Exam Constitutional: General: She is not in acute distress. Appearance: Normal appearance. She is not diaphoretic. Cardiovascular: Pulses: Dorsalis pedis pulses are 2+ on the right side and 2+ on the left side. Posterior tibial pulses are 2+ on the right side and 2+ on the left side. Abdominal: General: Bowel sounds are normal. Palpations: Abdomen is soft. Tenderness: There is no abdominal tenderness. Musculoskeletal: Lumbar back: Spasms present. Decreased range of motion. Back: Comments: Lumbar paraspinal muscles tender with palpation Neurological: Mental Status: She is alert and oriented to person, place, and time. Gait: Gait is intact. Gait normal. Deep Tendon Reflexes: Reflex Scores: Patellar reflexes are 2+ on the right side and 2+ on the left side. ASSESSMENT/PLAN: 1. Acute left-sided low back pain without sciatica - ICD9: 724.2, ICD10: M54.50 Steroids, flexeril, stretches provided Ice/rest Has f/u with pcp in 7 days, keep appointment. - PREDNISONE 10 MG TABLET - CYCLOBENZAPRINE 10 MG TABLET Agrees to plan John Page APRN.BROOK documented in this encounter [facility] Evaluation note Note Date & Type Note Facility documented in this encounter [facility] Summary Purpose Family History No Family History Records FoundNo Family History Records FoundNo Family History Records Found Advance Directives No Advanced Directives Records FoundNo Advanced Directives Records FoundNo Advanced Directives Records Found Additional Source Comments INFORMATION SOURCE (unrecogn ized section and content) DATE CREATED AUTHOR AUTHOR'S ORGANIZ ATION 03/16/2020 [facility] DATE CREATED AUTHOR AUTHOR'S ORGANIZ ATION 11/18/2021 [facility] Source Comments (unrecognize d section and content) In the event this informatio n is protected by the Federal Confidentiality of Alcohol and Drug Abuse Patient Records regulations: The Federal rules restrict any use of the information to criminally investigate or prosecute any alcohol or drug abuse patient.[facility] Reason for Visit (unrecogniz ed section and content) Care Teams (unrecognized sec tion and content) FOR RECORDS PERTAINING TO PATIENTS WHO ARE OR HAVE BEEN ENROLLED IN A CHEMICAL DEPENDENCY/SUBSTANCEABUSE PROGRAM, SOME INFORMATION MAY BE OMITTED. This clinical summary was aggregated from multiple sources. Caution should be exercised in using it in the provision of clinical care. This summary normalizes information from multiple sources, and as a consequence, information in this document may materially change the coding, format and clinical context of patient data. In addition, data may be omitted in some cases. CLINICAL DECISIONS SHOULD BE BASED ON THE PRIMARY CLINICAL RECORDS. [facility]. provides no warranty or guarantee of the accuracy or completeness of information in this document.
[2023-09-05 13:22] LABS: T4 Free Direct 1.01 ng/dL (0.76-1.46); Thyroid Stim Hormone (TSH) 3.25 uIU/mL (0.358-3.74)
[2023-09-08 14:08] LABS: Thyroglobulin Antibody 1034.2 IU/mL (0.0-0.9); Thyroid Peroxidase AB 352 IU/mL (0-34)
== END | disposition home or self-care (01) ==
LOC: BFHLAB 10:19
PROVIDERS: PCP Family Medicine; Visit Provider Family Medicine
DX: R94.6 Abnormal results of thyroid function studies (principal)
CPT/HCPCS: 36415; 84439; 84443; 86376; 86800

== ENCOUNTER → 2023-12-23 | Outpatient (CLI) | payer OTHER, SELFPAY ==
--- NOTE | 2023-12-23 09:27 | BI_ITS ---
MAMMOGRAPHY - BILATERAL DIAGNOSTIC REASON FOR EXAM: Female, 53 years old. Pain in the upper outer quadrant of the right breast. PERTINENT HISTORY: Non-contributory. Prior left breast biopsy. TECHNIQUE: Digital bilateral breast christie (3D mammographic acquisition) in the CC and MLO projections. 2-D mediolateral oblique (MLO) and craniocaudad (CC) views of both breasts were obtained. CAD: Full Field Digital Mammography with Computer Added Detection was performed. COMPARISON: Comparison is made with prior study dated July 29, 2023 and July 23, 2022. FINDINGS: Breast Composition: There are scattered areas of fibroglandular density. There are no dominant masses or suspicious calcifications. Stable small benign-appearing bilateral axillary lymph nodes. No other significant abnormalities are identified. There has been no significant change since the prior study. BI/DIAG MAMM W/CAD, BILAT IMPRESSION: Stable bilateral diagnostic mammogram. One year follow-up recommended. (A) ASSESSMENT CATEGORY: BIRADS Category 2: Benign. A letter regarding these results will be sent to the patient by the facility within 30 days. Approximately 10% of breast cancers are not detected by mammography. A normal mammogram should not delay biopsy of a clinically suspicious abnormality. Electronically Signed: Jj Ferrari MD at 10:51 EDT ,
--- NOTE | 2023-12-23 09:28 | US_ITS ---
STUDY: ULTRASOUND BREAST - RIGHT REASON FOR EXAM: Female, 53 years old. Pain in the upper outer quadrant of the right breast. TECHNIQUE: Axial and longitudinal images of the RIGHT breast were performed with a high resolution ultrasound transducer. # OF IMAGES: 22 COMPARISON: Comparison is made with prior mammogram done earlier today. FINDINGS: RIGHT Breast: The upper outer quadrant of the right breast was examined with ultrasound. No sonographic abnormality is seen. US/Breast Limited Unilateral IMPRESSION: No sonographic abnormality is seen. ASSESSMENT CATEGORY: BIRADS Category 1: Negative. A letter regarding these results will be sent to the patient by the facility within 30 days. Electronically Signed: Jj Ferrari MD at 14:20 EDT ,
== END | disposition home or self-care (01) ==
PROVIDERS: PCP Family Medicine; Referring Provider Family Medicine; Visit Provider Family Medicine
DX: N64.4 Mastodynia (principal)
CPT/HCPCS: 76642; 77062; 77066; G0279

== ENCOUNTER → 2024-07-15 | Outpatient (CLI) | payer OTHER, SELFPAY ==
[2024-07-15 10:04] LABS: Absolute Lymphocyte Count 2.43 X10^3/uL (0.83-4.51); Absolute Neutrophil Count 2.1 X10^3/uL (2.0-7.7); Basophil# 0.08 X10^3/uL; Basophil% 1.5 % (0-1); Eosinophil# 0.07 X10^3/uL; Eosinophils% 1.3 % (0-5); Hematocrit 44.8 % (37-47); Hemoglobin 14.3 g/dL (12.0-15.0); Lymphocyte # 2.43 X10^3/ul (0.83-4.51); Lymphocyte % 44.8 % (19-41); Mean Corp Hgb Conc 31.9 g/dL (32-36); Mean Corpuscular Hgb 31.3 pg (27.0-32.0); Mean Platelet Vol. 9.9 fl (6.2-12.0); Monocyte% 12.9 % (0-10); NRBC Flagged by Analyzer 0 % (0-5); Neutrophil # 2.13 X10^3/uL (2.7-7.7); Neutrophil % 39.3 % (47-70); Platelet Count 286 K/mm3 (150-450); RBC Distribution Width CV 12.4 % (11.6-14.6); RBC Distribution Width SD 44.7 fl (35.1-43.9); Red Blood Count 4.57 M/mm3 (4.2-5.4); White Blood Count 5.4 K/mm3 (4.4-11.0)
[2024-07-15 10:47] LABS: AST(SGOT) 20 U/L (15-37); Alanine Aminotransfer ALT/SGPT 25 U/L (13-56); Albumin, Serum 3.8 g/dL (3.2-5.0); Alkaline Phosphatase 137 U/L (45-117); Anion Gap 7 (5-15); BUN 10 mg/dL (7-18); Calcium,Total 9.2 mg/dL (8.5-10.1); Chloride 106 mmol/L (98-107); Cholesterol 229 mg/dL (200); Creatinine, Serum 0.71 mg/dL (0.55-1.02); EST Glomerular Filtration Rate 90 mL/min (>60); Est Glom Filt Rate - Afr Amer 109 mL/min (>60); Globulin 3.8 g/dL (2.2-4.2); Glucose 79 mg/dL (74-106); High Density Lipoprotein 91 mg/dL; Potassium 3.9 mmol/L (3.5-5.1); Protein, Total 7.6 g/dL (6.4-8.2); Sodium Level 137 mmol/L (136-145); T4 Free Direct 0.95 ng/dL (0.76-1.46); Triglycerides 85 mg/dL; Very Low Density Lipoprotein 17 mg/dL (5-40)
== END | disposition home or self-care (01) ==
PROVIDERS: PCP Family Medicine; Referring Provider Family Medicine; Visit Provider Family Medicine
DX: Z00.00 Encounter for general adult medical examination without abnormal findings (principal); R76.8 Other specified abnormal immunological findings in serum
CPT/HCPCS: 36415; 80053; 80061; 84439; 84443; 85025

== ENCOUNTER → 2024-12-24 | Outpatient (CLI) | payer SELFPAY, OTHER ==
--- NOTE | 2024-12-24 09:06 | US_ITS ---
PROCEDURE: PELVIC W/ TRANSVAGINAL (USPELTVAG), 12/24/2024 REASON FOR EXAM: POST ARASH TECHNIQUE: Grayscale and color doppler transabdominal and transvaginal pelvic ultrasound was performed. COMPARISON: None FINDINGS: Uterus: 5.5 x 4.2 x 2.9 cm, Retroverted. Tiny hypoechoic presumed fibroid measures 9 x 11 x 8 mm. Questionably borderline minimally heterogeneous myometrium may be technical. Endometrium: 4 mm, unremarkable. Cervix: Nonspecific calcifications, doubtful clinical significance Right ovary: 2.5 x 2.5 x 1.0 cm, grossly unremarkable postmenopausal appearance. Left ovary: Not visualized, possibly due to positioning, postmenopausal status, and/or shadowing bowel gas. Free fluid: None visualized. Other: Estimated bladder volume 242 mL. US/Pelvic w/ Transvaginal IMPRESSION: 1. No acute abnormality identified. Endometrial thickness is technically high- normal for a postmenopausal patient if abnormal bleeding is present. If no abnormal bleeding is present, this would be conside red well within normal limits. Clinical follow-up recommended. 2. Nonvisualized LEFT ovary. 3. Additional description as above. Reading Location: [id number]
--- NOTE | 2024-12-24 10:12 | BI_ITS ---
EXAM: SCRN MAMM (CAD)W/LOLA BILAT DATE: 12/24/2024 CLINICAL HISTORY: F, Age 54 y/o , SCREENING BREAST CANCER RISK ASSESSMENT: Has not been calculated TECHNIQUE: Bilateral screening digital breast tomosynthesis with 2D and 3D images. Computer aided detection. COMPARISON: Prior exam(s) dated 12/23/2023, 07/29/2023, and 07/23/2022 FINDINGS: TISSUE DENSITY: The breast tissue is almost entirely fatty. Bilateral Breast Mammographic Findings: No significant masses, calcifications or other abnormalities are identified. Benign round calcifications are seen in both breasts. A stable 3 mm well-circumscribed isodense mass in the superior outer, far posterior aspect of the right breast is noted. BI/SCRN MAMM (CAD)W/LOLA BILAT IMPRESSION: OVERALL FINAL ASSESSMENT: BIRADS 2 BENIGN FINDING RECOMMENDATION: Routine annual follow-up in 1 Year A letter with findings and recommendations will be mailed to the patient. Reading Location: [id number]
== END | disposition home or self-care (01) ==
PROVIDERS: PCP Family Medicine; Referring Provider Family Medicine; Visit Provider Family Medicine
DX: Z12.31 Encounter for screening mammogram for malignant neoplasm of breast (principal); N95.0 Postmenopausal bleeding
CPT/HCPCS: 76830; 76856; 77063; 77067

== ENCOUNTER → 2025-01-04 | Outpatient (CLI) | payer OTHER, SELFPAY ==
--- NOTE | 2025-01-04 | EMB_PTH ---
PATIENT: ANEGLO WALKER LOC: [facility] U#:[id number] AGE/SX: 54/F ROOM: RE01/04/[address]: FAUSTO Head : 1970 BED: DIS: 01/04/2025 SPEC #: [id number] RECD: 01/04/25 11:42 STATUS: MONIKA RECharo #: [id number] CANDY: 01/04/25 00:[address]: Daphne Viveros NP DEPT: SURGICAL PATHOLOGY RECD BY: Bassem Cardenas ENTERED: 01/04/25 13:58 SP TYPE: ENDOM BX/C LATONIA DR: Dr. Venancio Rose, DO Tissues: A - Endometrium, NOS Procedures: Surgery Specimen Level IV HEADER OPERATION: Endometrial biopsy PRE-OP DIAGNOSIS: Abnormal uterine bleeding / post menopausal bleeding TISSUE SUBMITTED: A- Endometrial lining MICROSCOPIC DIAGNOSIS A. Uterus, endometrial lining, biopsy: * Detached strips of superficial inactive endometrium MICROSCOPIC DESCRIPTION Slides are reviewed. GROSS DESCRIPTION A. Received in formalin in a container labeled with the patient's name, date of , and with no further designation is a scant amount of wispy soft tissue admixed with mucus measuring approximately 0.6 x 0.5 x 0.1 cm in aggregate. Submitted entirely for cellblock preparation in A1. [facility] 01-04-2025 CPT:29435
[2025-01-11 16:08] LABS: HPV APTIMA, High Risk Negative (Negative)
== END | disposition home or self-care (01) ==
LOC: LABSPEC 09:58
PROVIDERS: PCP Family Medicine; Referring Provider Nurse Practitioner Women's Health; Visit Provider Nurse Practitioner Women's Health
DX: N93.9 Abnormal uterine and vaginal bleeding, unspecified (principal); Z12.4 Encounter for screening for malignant neoplasm of cervix
CPT/HCPCS: 87624; 88175; 88305; G0145

== ENCOUNTER 2025-06-17 11:40 | Emergency (ER) | payer OTHER, SELFPAY ==
[2025-06-17] VITALS (7 sets, daily range): BP systolic 133–163; BP diastolic 85–112; PULSE 79–105; RESP 14–19; TEMP 36.6; O2SAT 95–100; BMI 29.2
--- NOTE | 2025-06-17 12:17 | EKG12_ITS ---
Test Reason : Blood Pressure : */* mmHG Vent. Rate : 84 BPM Atrial Rate : 84 BPM P-R Int : 146 ms QRS Dur : 82 ms QT Int : 366 ms P-R-T Axes : 40 0 22 degrees QTcB Int : 432 ms Normal sinus rhythm Minimal voltage criteria for LVH, may be normal variant ( R in aVL ) Borderline ECG Confirmed by LV MCGREGOR ([id number]), editor city BOSSMAN ROGERS ([id number]) on 06/20/2025 6:55:54 AM Referred By: Confirmed By: LV MCGREGOR
--- NOTE | 2025-06-17 12:27 | EX.ED.DYSGE1 ---
HPI History of Present Illness Chief Complaint: General Illness Informant: patient and spouse/S.O. Narrative Narrative: 55-year-old female presenting to the emergency room with a chief complaint of near syncope. Patient states that on Friday she got 3 vaccinations in the right arm. She states that Friday she felt generally ill on Friday had a slight cough and some mucus in her chest. She has felt somewhat rundown had some swelling and tenderness in the right arm which she spoke to her doctor about yesterday. She states today she felt pretty good but had 2 episodes of diarrhea. She went to the salon to have her hair done while there began to have near syncopal feeling like the room was closing in on her and she fell like she was going to pass out. She states she laid down and felt better. She was able to drive home and call her and they brought her in out of precaution. She states she is otherwise feeling better. She did eat breakfast this morning. She denies chest pain. [facility] Medical History Postmenopausal bleeding Hyperlipidemia Sciatica Scoliosis Anxiety Home Medications Medication Instructions Recorded Last Taken Type aspirin 81 mg tablet,delayed 81 mg PO DAILY 10/04/19 Unknown History release (Adult Low Dose Aspirin) biotin 1 mg capsule 1 mg PO DAILY 10/06/19 Unknown History lactobacillus combination no.8 3 3,000 mmu cells PO DAILY 10/06/19 Unknown History billion cell capsule (Adult Probiotic) vitamin B complex (B 1 tab PO DAILY 10/06/19 Unknown History Complex-Vitamin B12 tablet) loratadine 10 mg tablet (Allergy 10 mg PO QDAY 01/04/25 Unknown History Relief (loratadine)) estradiol 0.01% (0.1 mg/gram) See Rx Instructions vaginal 01/05/25 Unknown Rx vaginal cream .COMPLEX #42.5 grams Allergy/AdvReac Type Severity Reaction Status Date / Time No Known Allergies Allergy Verified 06/17/25 11:43 Family History Father Heart disease Mother CVA (cerebral vascular accident) Myocardial infarction Brother Cancer, Onset Age: 54 Tonsil Surgical History History of cholecystectomy Social History household members: spouse current occupational status: retired Smoking Status: Never smoker alcohol intake: current alcohol intake frequency: a few times a week substance use type: does not use caffeine: Yes Type: coffee Number of servings: 1 seatbelt use: always do you feel safe at home: Yes additional social history: - Albert ROS ROS ED Constitutional Constitutional ED: Reports chills; Denies fever(s) or weight loss Eyes Eyes: Denies change in vision or diplopia ENT ENT ED: Denies ear pain, rhinorrhea or sore throat Cardiovascular Cardiovascular: Reports other Details: Near syncope ; Denies chest pain, orthopnea, palpitations or racing heartbeat Respiratory/Chest Respiratory/Chest: Reports cough, sputum and other; Denies dyspnea or orthopnea Gastrointestinal Gastrointestinal: Denies abdominal pain, diarrhea, nausea or vomiting Genitourinary Genitourinary ED: Denies dysuria, hematuria or urinary frequency Musculoskeletal Musculoskeletal: Reports myalgias and other Details: Right arm pain ; Denies arthralgias Integumentary Denies abscess or rash Neurologic Neurologic: Denies headache(s) or weakness Psychiatric Psychiatric: Denies anxiety, depression, suicidal ideation or suicidal thoughts Endocrine Endocrinology: Denies polydipsia, polyphagia or polyuria Allergic/Immunologic Allergic/Immunologic ED: Denies mouth swelling, tongue swelling or urticaria EXAM Physical Exam Const Vital Signs: 06/17/25 11:41 06/17/25 12:09 06/17/25 12:10 Temperature 97.9 F Temperature Source Oral Pulse Rate 105 H 99 Respiratory Rate 18 17 Respiratory Effort Normal Respiratory Pattern Normal Blood Pressure 162/112 H 163/92 H Blood Pressure Mean 128 115 Pulse Ox 100 97 Oxygen Delivery Method Room Air Room Air 06/17/25 12:40 06/17/25 12:45 06/17/25 13:00 Temperature Temperature Source Pulse Rate 86 83 79 Respiratory Rate 15 19 H 17 Respiratory Effort Respiratory Pattern Blood Pressure 141/98 H Blood Pressure Mean 111 Pulse Ox 97 98 95 Oxygen Delivery Method 06/17/25 13:30 06/17/25 14:42 Temperature 97.9 F Temperature Source Pulse Rate 79 79 Respiratory Rate 14 14 Respiratory Effort Respiratory Pattern Blood Pressure 133/85 H 133/85 H Blood Pressure Mean 101 101 Pulse Ox 96 96 Oxygen Delivery Method Positive well nourished and well developed General Appearance ED: well developed HEENT Reports normocephalic, head/scalp atraumatic and moist mucous membranes Eyes PERRL and EOMs intact bilaterally Neck no lymphadenopathy, supple and no JVD Resp normal respiratory effort and clear to auscultation bilaterally Cardio regular rate, regular rhythm and no murmurs GI normal to inspection, nondistended, normoactive bowel sounds and non-tender Palpation: soft Back/Spine no CVA tenderness and normal ROM Extremity Extremity Narrative: Mild tenderness in the right deltoid muscle. General Extremety ED: Negative for edema General Extremity: Negative for edema Neuro oriented x3 and CN's II-XII intact bilaterally Sensorium / Orientation: alert Motor Exam: strength 5/5 throughout Psych mental status grossly normal Mood & Affect: Negative for depressed or tearful Skin no rashes or lesions noted and no wounds MDM MDM MDM Narrative Medical decision making narrative: Differential diagnosis includes vasovagal near syncope cardiogenic syncope dehydration immune reaction electrolyte abnormalities cardiac dysrhythmia Basic blood work was obtained including 2 cardiac enzymes that are negative. She said no events on the monitor. EKG is a normal sinus rhythm with no concerning features. My independent interpretation of the chest x-ray is no acute process. I think the patient can be reasonably discharged home with observation. She is to return if worsening or concerns follow-up with primary care if not improving History & Record Review Discussion w/independent historian: Patient and Significant other Lab Data Attestation: I reviewed the patient's lab results. Labs: Laboratory Results - last 24 hr 06/17/25 06/17/25 11:52 13:51 WBC 6.4 RBC 4.62 Hgb 14.8 Hct 44.4 MCV 96.1 MCH 32.0 MCHC 33.3 RDW Std Deviation 44.8 H RDW Coeff of Loli 12.7 Plt Count 255 MPV 10.3 Immature Gran % (Auto) Not Reportable Neut % (Auto) Not Reportable Lymph % (Auto) Not Reportable [place] % (Auto) Not Reportable Eos % (Auto) Not Reportable Baso % (Auto) Not Reportable Absolute Neuts (auto) 1.5 L Absolute Lymphs (auto) 3.32 Total Counted 100 Neutrophils % (Manual) 23 L Band Neutrophils % 1 Lymphocytes % (Manual) 52 H Monocytes % (Manual) 10 Eosinophils % (Manual) 1 Basophils % (Manual) 3 H Plasma Cell % (Manual) 10 Nucleated RBC % 0 Diff Path Review May foll Platelet Estimate ADEQUATE RBC Morphology NORM C+C Sodium 139 Potassium 3.9 Chloride 102 Carbon Dioxide 25.7 Anion Gap 12 BUN 10 Creatinine 0.80 Estim Creat Clear Calc 89.78 Est GFR (MDRD) Non-Af 87 BUN/Creatinine Ratio 12.4 Glucose 107 H Calcium 9.5 Troponin T High Sens < 6 Troponin T Hi Sens 2 Hr 8 Radiography Diagnostic Testing: Clinical Impression(s) from Imaging Studies Chest X-Ray 06/17/25 12:35 IMPRESSION: No focal consolidations. Reading Location: [facility] EKG Initial EKG: Attestation: I personally reviewed and interpreted this EKG as follows: Comments: Normal sinus rhythm ventricular rate of 84 bpm Discharge Plan Triage Chief Complaint: General Illness ED Provider: Mauricio Hartley Dx/Rx/DC Orders Clinical Impression: Near syncope Instructions: ED Near-Fainting, Uncertain Cause Prescriptions: No Action vitamin B complex [B Complex-Vitamin B12] Tablet 1 tab PO DAILY biotin 1 mg capsule 1 mg PO DAILY Adult Probiotic 3 billion cell capsule 3,000 mmu cells PO DAILY Rx Instructions: administer with a meal aspirin [Adult Low Dose Aspirin] 81 mg tablet,delayed release (DR/EC) 81 mg PO DAILY loratadine [Allergy Relief (loratadine)] 10 mg tablet 10 mg PO QDAY estradiol 0.01 % (0.1 mg/gram) cream See Rx Instructions vaginal .COMPLEX Qty: 42.5 2RF Rx Instructions: small amount(.25mg) as directed vaginal every other day X 4 weeks then twice a week; Primary Care Provider: Venancio Rose Referrals: Venancio Rose DO [Primary Care Provider, Family Practice] - 3-5 Days if not improving Print Language: [place] Disposition Disposition: Home, Self Care Discharge Date/Time: 06/17/25 14:45
[2025-06-17 12:32] LABS: Hematocrit 44.4 % (37-47); Hemoglobin 14.8 g/dL (12.0-15.0); Immature Granulocytes Count 0.010 X10^3/uL (0.0-0.0); Mean Corp Hgb Conc 33.3 g/dL (32-36); Mean Corpuscular Volume 96.1 fL (81-99); Mean Platelet Vol. 10.3 fl (6.2-12.0); NRBC Flagged by Analyzer 0 % (0-5); POSITIVE MORPHOLOGY YES; Platelet Count 255 K/mm3 (150-450); RBC Distribution Width CV 12.7 % (11.6-14.6); RBC Distribution Width SD 44.8 fl (35.1-43.9); Red Blood Count 4.62 M/mm3 (4.2-5.4); White Blood Count 6.4 K/mm3 (4.4-11.0)
--- NOTE | 2025-06-17 12:35 | RAD_ITS ---
PROCEDURE: CHEST 1 VIEW (PORTABLE) 06/17/2025 REASON FOR EXAM: CHEST PAIN TECHNIQUE: Frontal view of the chest. COMPARISON: None FINDINGS: No focal consolidation. No pleural effusion or pneumothorax. Cardiac silhouette is within normal limits. No acute fractures. RAD/Chest 1 View (Portable) IMPRESSION: No focal consolidations. Reading Location: [id number]
[2025-06-17 12:47] LABS: Troponin T High Sensitivity < 6 ng/L (<=14)
[2025-06-17 12:53] LABS: Anion Gap 12 (5-15); BUN 10 mg/dL (4-19); BUN/Creat Ratio 12.4 RATIO (10-20); Calcium,Total 9.5 mg/dL (7.6-11.0); Carbon Dioxide 25.7 mmol/L (21.0-32.0); Chloride 102 mmol/L (98-108); Estimated Creatinine Clearance 89.78 ml/min (50-250); Glucose 107 mg/dL (70-99); Potassium 3.9 mmol/L (3.3-5.1)
[2025-06-17 12:56] LABS: Differential Indicated SCAN CRITERIA MET
[2025-06-17 12:58] LABS: Scan Smear per Review Criteria MANUAL DIFF
[2025-06-17 13:06] LABS: Neutrophil-Band 1 % (0-5); Neutrophil-Segmented 23 % (47-70); Total Cells Counted 100 (MANUAL DIFF)
[2025-06-17 13:08] LABS: Red Cell Morphology NORM C+C NORMAL (NORM C&C)
[2025-06-17 14:27] LABS: Troponin T High Sens 2 HR 8 ng/L (<=14)
== END 2025-06-17 14:45 | disposition home or self-care (01) ==
PROVIDERS: Emergency Provider Emergency Medicine; PCP Family Medicine; Visit Provider Emergency Medicine
DX: R55 Syncope and collapse (principal); R19.7 Diarrhea, unspecified; E78.5 Hyperlipidemia, unspecified; R05.9 Cough, unspecified; Z79.82 Long term (current) use of aspirin; Z79.899 Other long term (current) drug therapy
CPT/HCPCS: 71045; 80048; 84484; 85025; 93005; 99285; A4216